=== PATIENT | female | born 1945 | race Caucasian/White ===

== ENCOUNTER → 2018-03-12 | Outpatient (CLI) | payer OTHER ==
[~2018-03-12] VITALS: Ht 144.8 cm; Wt 67.8 kg
[~2018-03-12] MED LIST: ASPIR 8181 MG PO; BIOTIN5000 MC1 PO; COQ1050 MG PO; DYNACIN100 MG PO; KRILL OIL 3001 EACH PO; LIPITOR10 MG PO; PRILOSEC 20 MG20 MG PO; PRINIVIL20 MG PO; PROPRANOLOL 4040 MG PO; SYNTHROID75 MCG PO; TRAMADOL 50 MG50 MG PO; VAGIFEM10 MCG VAG; VITAMIN D2000 UNI1 PO
[2018-03-12 12:49] VITALS: BP 133/62
== END ==
LOC: PAIN 06:52
DX: M54.41 Lumbago with sciatica, right side (principal); M25.552 Pain in left hip; Z79.899 Other long term (current) drug therapy

== ENCOUNTER → 2018-05-23 | Outpatient (CLI) | payer OTHER ==
[~2018-05-23] VITALS: Ht 144.8 cm; Wt 68.9 kg
[~2018-05-23] MED LIST changes: +PRIMIDONE50 MG PO
[2018-05-23 09:46] VITALS: BP 170/62
== END | disposition home or self-care (01) ==
LOC: PAIN 09:15
DX: M70.61 Trochanteric bursitis, right hip (principal); Z88.2 Allergy status to sulfonamides; Z88.6 Allergy status to analgesic agent; Z79.82 Long term (current) use of aspirin; Z79.899 Other long term (current) drug therapy